=== PATIENT | female | born 1990 | race American Indian/Alaskan Native ===

== ENCOUNTER 2019-05-06 18:21 | Outpatient (CLI) | payer SELFPAY ==
[2019-05-06 18:51] VITALS: BP 123/70
[2019-05-06] MEDS ORDERED: LACTATED RINGERS 1,000 ML IV ONE (20:05)
[2019-05-06 21:15] LABS: Hematocrit 33.4 % (30.3-42.9); Mean Corpuscular HGB Conc 33 % (30-34); Mean Corpuscular Volume 82 fl (79-97); Platelet Count 172 K/mm3 (140-440); Red Blood Count 4.06 M/mm3 (3.65-5.03); Red Cell Distribution Width 14.6 % (13.2-15.2)
--- NOTE | 2019-05-06 21:53 | Ultrasound Report ---
Examination: Ultrasound Obstetrical Limited, 05/06/2019 INDICATION: Evaluate well being. History of fall. COMPARISON: No prior studies are available for comparison. FINDINGS: There is a single living intrauterine with the head in the cephalic position. Amniotic flui d index measures 15.5 cm, which is within normal limits. The heart rate is 131 beats per minute . Signer Name: Bernice Kaiser MD Signed: 05/06/2019 9:48 PM Workstation Name: [email or web address]
--- NOTE | 2019-05-06 21:54 | Ultrasound Report ---
ULTRASOUND BIOPHYSICAL PROFILE INDICATION / CLINICAL INFORMATION: Evaluate well-being. History of fall. COMPARISON: Limited obstetrical ultrasound, 05/06/2019 FINDINGS: BREATHING MOVEMENT = 2 GROSS BODY MOVEMENT = 2 TONE = 2 QUALITATIVE AMNIOTIC FLUID VOLUME = 2 TOTAL BIOPHYSICAL SCORE = 04/05 AMNIOTIC FLUID INDEX (cm) = 15.5 PRESENTATION: Cephalic. HEART RATE (beats per minute): 131 IMPRESSION: 1. biophysical profile = 04/05 Signer Name: Bernice Kaiser MD Signed: 05/06/2019 9:49 PM Workstation Name: [id number]
== END 2019-05-06 21:43 | disposition home or self-care (01) ==
LOC: TRG 18:21
PROVIDERS: ATTEND Obstetrics & Gynecology
DX: O26.893 Other specified pregnancy related conditions, third trimester (principal); M54.5 Low back pain; R10.30 Lower abdominal pain, unspecified; W10.8XXA Fall (on) (from) other stairs and steps, initial encounter; O99.513 Diseases of the respiratory system complicating pregnancy, third trimester; J45.909 Unspecified asthma, uncomplicated; O99.343 Other mental disorders complicating pregnancy, third trimester; F41.9 Anxiety disorder, unspecified; O99.323 Drug use complicating pregnancy, third trimester; F12.90 Cannabis use, unspecified, uncomplicated; Z3A.31 31 weeks gestation of pregnancy; Z87.891 Personal history of nicotine dependence; Y93.89 Activity, other specified; Y92.89 Other specified places as the place of occurrence of the external cause; Y99.8 Other external cause status
CPT/HCPCS: 36415; 59025; 76815; 76819; 85027; 96360; J7120

== ENCOUNTER 2019-07-08 16:48 | Inpatient (IN) | payer MEDICAID ==
[2019-07-08] MEDS ORDERED: OXYTOCIN 20 UNIT/1000ML DRIP 20,000 MILLIUNITS/1,000 ML BAG IV ONE (16:52)
[2019-07-08] MEDS ORDERED: HYDROcodone/ACETAMINOPHEN 5-325 MG TAB PO PRN (17:01)
[2019-07-08] MEDS ORDERED: LANOLIN/ZINC/DIMETHICONE (LANSINOH) 7 GM TP PRN (17:01)
[2019-07-08] MEDS ORDERED: MAGNESIUM HYDROXIDE (MOM) ORAL LIQD UDC PO PRN (17:01)
[2019-07-08] MEDS ORDERED: WITCH HAZEL/ GLYCERIN PAD TP PRN (17:01)
--- NOTE | 2019-07-08 17:14 | History and Physical Report ---
History of Present Illness Date of examination: 07/08/19 Date of admission: 07/08/19 16:48 Chief complaint: Delivered at home History of present illness: 29 year old presents to L&D after delivering baby and placenta at home. Patient states she used to receive care while she was in snf (from [facility]). States she was released from sn[facility] over 2 months ago and did not receive any care since she was released from snf. LMP unknown. Patient states her EDC was 07/02/19 (she states this was based on her LMP and an ultrasound). records are not available. labs were drawn upon admission. Past History Past Medical History: other (preeclampsia with her last ) Past Surgical History: no surgical history [facility] History: denies: chlamydia, gonorrhea, hepatitis B, hepatitis C, herpes, HIV, syphilis, trichomonas Family/Genetic History: diabetes Social history: lives with family, full code, other (was incarcerated for a portion of her ; poor care). denies: smoking, alcohol abuse, prescription drug abuse, IV drug use - Obstetrical History Expected Date of Delivery: 07/02/19 Actual Gestation: 40 Week(s) 6 Day(s) : 5 Para: 4 Hx # Term Pregnancies: 4 Number of Pregnancies: 0 Spontaneous Abortions: 0 Induced : 0 Number of Living Children: 4 Medications and Allergies Allergies Allergy/AdvReac Type Severity Reaction Status Date / Time No Known Allergies Allergy Verified 07/15/13 21:44 Home Medications Medication Instructions Recorded Confirmed Last Taken Type Pnv No.121/Iron/Folic Acid 1 each PO QDAY 06/25/17 06/25/17 06/24/17 12:00 History [ Multivitamin Tablet] Docusate Sodium [Colace] 100 mg PO DAILY #30 capsule 06/26/17 Unknown Rx Ferrous Sulfate [Feosol 325 MG tab] 325 mg PO BID #90 tablet 06/26/17 Unknown Rx Ibuprofen [Motrin 800 MG tab] 800 mg PO TID PRN #30 tablet 06/26/17 Unknown Rx Lidocain2.5%/Prilocai2.5% [Emla] 5 gm TP ONCE #1 tube 06/26/17 Unknown Rx Active Meds: Active Medications Acetaminophen/Hydrocodone Bitart ([place] 5/325) 2 each PO Q6H PRN PRN Reason: Pain, Moderate (4-6) Ferrous Sulfate (Feosol) 325 mg PO BID YUKO Ibuprofen (Ibuprofen) 600 mg PO Q6H YUKO Magnesium Hydroxide (Milk Of Magnesia) 30 ml PO HS PRN PRN Reason: Constipation Multi-Ingredient Ointment (Lansinoh) 1 applic TP PRN PRN PRN Reason: Sore Nipples Sodium Chloride (Sodium Chloride Flush Syringe 10 Ml) 10 ml IV PRN NR Witch Dara/Glycerin (Tucks Pad) 1 each TP PRN PRN PRN Reason: Hemorrhoid/cleansing/soothing Review of Systems All systems: negative (delivered baby and placenta at home) - Vital Signs Vital signs: Vital Signs Pulse Pulse Ox 70 99 07/08/19 16:55 07/08/19 16:55 Temp Pulse Resp BP Pulse Ox 70 99 07/08/19 16:55 07/08/19 16:55 - Physical Exam Cardiovascular: Regular rate, Normal S1, Normal S2, No murmurs Lungs: Positive: Clear to auscultation Abdomen: Positive: normal appearance, soft. Negative: distention, tenderness, guarding, rigidity Genitourinary (Female): Positive: normal external genitalia, normal perenium, other (small bilateral first degree lacerations of labia minora; not bleeding and patient declined repair). Negative: perineal/vulvar lesions Vagina: Positive: other (small amount of lochia rubra; vaginal sweep negative) Cervix: Positive: other (nontender cervix) Uterus: Positive: enlarged (fundus firm at 1 FB below umbilicus) Anus/Rectum: Positive: normal perianal skin Extremities: Positive: normal. Negative: tenderness, edema Results All other labs normal. Assessment and Plan A: Term with precipitous labor and delivery at home. Normal exam. Grand multipara. No records available. Elevated blood pressure. History of Preeclampsia with her last . Poor care. P: Admit. Transfer to mother/baby. See orders. labs drawn upon admission. Preeclamptic labs and BP monitoring.
--- NOTE | 2019-07-08 17:23 | Procedure Note ---
OB Delivery Note - Delivery Date of Delivery: 07/15/19 - Vaginal Delivery presentation: vertex Delivery placenta: spontaneous Delivery cord: 3 umbilical vessels Delivery laceration: 1st degree (bilateral first degree lacerations of labia minora; not bleeding; pt. declined repair) Delivery comments: Precipitous vaginal delivery at home (delivered baby and placenta at home). Baby's weight: 6 lb. 11 oz. (3030 grams).
[2019-07-08 17:48] LABS: Hematocrit 34.1 % (30.3-42.9); Hemoglobin 11.2 gm/dl (10.1-14.3); Mean Corpuscular HGB Conc 33 % (30-34); Mean Corpuscular Volume 82 fl (79-97); Platelet Count 123 K/mm3 (140-440); Red Blood Count 4.14 M/mm3 (3.65-5.03); Red Cell Distribution Width 17.3 % (13.2-15.2)
[2019-07-08] MEDS: IBUPROFEN 600 MG TAB PO SCH (17:54)
[2019-07-08] MEDS ORDERED: OXYTOCIN 20 UNIT/1000ML DRIP 20 UNITS/1,000 ML BAG IV SCH (18:00)
[2019-07-08 18:13] LABS: Alanine Aminotransferase 10 units/L (7-56); Albumin 3.4 g/dL (3.9-5); BUN/Creatinine Ratio 13; Blood Urea Nitrogen 5 mg/dL (7-17); Calcium 8.5 mg/dL (8.4-10.2); Hemolysis Index 16; Uric Acid 2.7 mg/dL (3.5-7.6)
[2019-07-08 18:20] LABS: Hepatitis C Virus Antibody Non-Reactive (NonReactive)
[2019-07-09] MEDS: IBUPROFEN 600 MG TAB PO SCH ×4 (00:45→18:33)
[2019-07-09] MEDS: FERROUS SULFATE 325 MG TAB PO SCH ×3 (00:46→22:00)
[2019-07-09 01:58] LABS: Bilirubin,Urine NEG (Negative); Blood,Urine LG (Negative); Color,Urine Amber (Yellow); Mucus,Urine 3+ /HPF
[2019-07-09 01:59] LABS: Amphetamine Screen,Urine PRESUMPTIVE NEGATIVE; Benzodiazepines Screen,Urine PRESUMPTIVE NEGATIVE; Methadone Screen,Urine PRESUMPTIVE NEGATIVE; Opiate Screen,Urine PRESUMPTIVE NEGATIVE; RBC,Urine > 182.0 /HPF (0.0-6.0)
[2019-07-09 02:34] LABS: Cannabinoid Screen,Urine PRESUMPTIVE POSITIVE; Cocaine Screen,Urine PRESUMPTIVE POSITIVE
[2019-07-09 08:41] LABS: Hematocrit 30.6 % (30.3-42.9); Hemoglobin 10.1 gm/dl (10.1-14.3)
--- NOTE | 2019-07-09 13:31 | Progress Note ---
Assessment and Plan - Patient Problems (1) Status post normal vaginal delivery Current Visit: Yes Status: Acute Plan to address problem: PPD 1 - stable Continue routine orders Discharge to home later today Follow up at [facility] as needed or in 6 weeks for check (2) Single live Current Visit: No Status: Acute Subjective - Subjective Date of service: 07/09/19 Principal diagnosis: PPD #1; s/p Home Interval history: see H&P and OB Delivery Procedure note Patient reports: appetite normal, voiding normally, pain well controlled, ambulating normally, no dizzy ambulation : doing well, bottle feeding Objective - Vital Signs Latest vital signs: Vital Signs Temp Pulse Resp BP BP Pulse Ox 07/09/19 11:36 98.0 F 75 20 137/82 100 07/09/19 08:36 97.7 F 66 20 145/85 100 07/09/19 04:00 98.6 F 60 18 112/78 07/09/19 00:00 98.7 F 74 18 115/68 07/08/19 23:30 98.7 F 62 18 118/72 07/08/19 19:30 98.7 F 65 18 132/82 07/08/19 18:55 97.8 F 66 18 135/80 100 07/08/19 18:21 98.0 F 50 L 18 153/88 07/08/19 17:05 98.1 F 18 07/08/19 16:55 70 99 Intake and Output 07/08/19 07/09/19 07/09/19 23:59 07:59 15:59 Intake Total 925 200 480 Output Total 1100 1300 Balance -175 -1100 480 Intake: IV 125 Left Hand 125 Oral 200 200 480 Intake, Free Water 600 Output: Urine 1100 1300 Void 1100 1300 Other: Total, Intake Amount 200 200 480 Total, Output Amount 800 700 # Voids Void 1 1 1 Weight 68.039 kg - Exam Cardiovascular: Present: Regular rate Lungs: Present: Clear to auscultation Abdomen: Present: normal appearance, soft Vulva: both: normal Uterus: Present: normal, firm, fundal height below umbilicus Extremities: Present: normal Comments: small lochia - Labs Labs: Abnormal lab results 07/08/19 07/08/19 Range/Units 16:56 16:56 MCH 27 L (28-32) pg RDW 17.3 H (13.2-15.2) % Plt Count 123 L (140-440) K/mm3 Sodium 135 L (137-145) mmol/L Carbon Dioxide 19 L (22-30) mmol/L BUN 5 L (7-17) mg/dL Creatinine 0.4 L (0.7-1.2) mg/dL Uric Acid 2.7 L (3.5-7.6) mg/dL Alkaline Phosphatase 177 H (35-129) units/L Lactate Dehydrogenase 209 H (91-180) units/L Albumin 3.4 L (3.9-5) g/dL
--- NOTE | 2019-07-09 13:35 | Discharge Summary ---
Providers - Providers Date of Admission: 07/08/19 16:48 Date of discharge: 07/10/19 Attending physician: DERIC HUITRON MD 07/09/19 02:57 Consult to Case Management [CONS] Routine Services Needed at Discharge: Rail Switchman Notified:: Ext [phone] Was contact made?: No Additional Physician Instructions: Positive UDS. Primary care physician: CLINICAL PHARMACY COORDINATOR Hospitalization Reason for admission: other (home ) Delivery: Episiotomy: none Laceration: 1st degree Other procedures: none complications: none Discharge diagnosis: IUP at term delivered [place] baby: female Hospital course: Uncomplicated Condition at discharge: Stable Disposition: DC-01 TO HOME OR SELFCARE - Discharge Diagnoses (1) Status post normal vaginal delivery Status: Acute (2) Single live Status: Acute Plan - Provider Discharge Summary Activity: routine, no sex for 6 weeks, no heavy lifting 4 weeks, no strenuous exercise Diet: routine Instructions: routine Additional instructions: [] Smoking cessation referral if applicable(refer to patient education folder for contact #) [] Refer to [facility] Booklet Call your doctor immediately for: * Fever > 100.5 * Heavy vaginal bleeding ( >1 pad per hour) * Severe persistent headache * Shortness of breath * Reddened, hot, painful area to leg or breast * Drainage or odor from incision. * Keep incision clean and dry at all times and follow doctor's instructions regarding bathing/showering - Follow up plan Follow up: PRIMARY CARE, [Primary Care Provider] - 6 Weeks (Follow up at [facility] as needed or in 6 weeks for check)
[2019-07-10] MEDS: IBUPROFEN 600 MG TAB PO SCH ×3 (00:04→18:05)
[2019-07-10] MEDS: FERROUS SULFATE 325 MG TAB PO SCH (10:08)
[2019-07-10 17:03] VITALS: BP 146/83
[2019-07-11 07:21] LABS: HIV-1 Antibody Differentiation SEE SCANNED RESULT; HIV-2 Antibody Differentiation SEE SCANNED RESULT
== END 2019-07-10 20:01 | disposition home or self-care (01) | DRG 776 ==
LOC: LD 16:48 → OB 18:50
PROVIDERS: ADMIT Obstetrics & Gynecology; ATTEND Obstetrics & Gynecology
DX: O70.0 First degree perineal laceration during delivery (principal)
CPT/HCPCS: 36415; 80053; 80307; 81001; 83036; 83615; 84550; 85014; 85018; 85027; 86592; 86689; 86706; 86762; 86803; 86850; 86900; 86901; 88307; G0378; J2590